=== PATIENT | male | born 1955 | race Two or more races ===

== ENCOUNTER 2022-11-28 21:01 | Emergency (ER) | payer OTHER ==
[~2022-11-28] VITALS: Ht 172.7 cm; Wt 68.0 kg
[~2022-11-28 21:01] MED LIST: METFORMIN HCL1000 M3 PO
[2022-11-29] MEDS ORDERED: CIPRO500 MG PO (03:19)
== END 2022-11-29 03:27 | disposition home or self-care (01) ==
LOC: ER 21:01
DX: R53.81 Other malaise (principal); N39.0 Urinary tract infection, site not specified; E11.65 Type 2 diabetes mellitus with hyperglycemia; E11.40 Type 2 diabetes mellitus with diabetic neuropathy, unspecified; Z79.84 Long term (current) use of oral hypoglycemic drugs